=== PATIENT | female | born 1955 | race Caucasian/White ===

== ENCOUNTER 2017-06-04 07:52 | Day surgery (SDC) | payer MEDICAID ==
[2017-06-04] MEDS ORDERED: Lactated Ringer's 1,000 ML IV ONE (09:23)
[2017-06-04 09:43] VITALS: TEMP 97
[2017-06-04] MEDS ORDERED: Propofol 10 mg/ml Inj (20 ML) ONE (11:03)
[2017-06-04] MEDS ORDERED: Lidocaine 2% MPF (5 ml) Inj ONE (11:03)
[2017-06-04 11:54] VITALS: O2SAT 99
[2017-06-04 11:58] VITALS: BP 100/60; PULSE 59; RESP 14
== END 2017-06-04 12:23 | disposition home or self-care (01) ==
LOC: H.ENDO 07:52
PROVIDERS: ATTEND Internal Medicine Gastroenterology
DX: Z12.11 Encounter for screening for malignant neoplasm of colon (principal); K64.8 Other hemorrhoids; K57.30 Diverticulosis of large intestine without perforation or abscess without bleeding; M85.80 Other specified disorders of bone density and structure, unspecified site; K31.9 Disease of stomach and duodenum, unspecified; B96.81 Helicobacter pylori [H. pylori] as the cause of diseases classified elsewhere
CPT/HCPCS: 43239; 45378; 88305; J2704; J7120